=== PATIENT | male | born 1935 | race Caucasian/White ===

== ENCOUNTER → 2017-04-21 | Day surgery (SDC) | payer MEDICARE ==
[~2017-04-21] MED LIST: LACTATED RINGER'S 1000 ML INJ 1,000 ML; PROPOFOL 200 MG/20 ML AMP IV
== END | disposition home or self-care (01) ==
LOC: ESDC 08:15
DX: R13.10 Dysphagia, unspecified (principal); K44.9 Diaphragmatic hernia without obstruction or gangrene; K29.70 Gastritis, unspecified, without bleeding; K22.2 Esophageal obstruction
CPT/HCPCS: 00731; 88305; 88305-59